=== PATIENT | female | born 1945 | race Caucasian/White ===

== ENCOUNTER 2023-12-02 11:33 | Emergency (ER) | payer MEDICARE ==
[~2023-12-02] VITALS: Ht 165.1 cm; Wt 68.0 kg
[2023-12-02 11:47] VITALS: BP 109/47; PULSE 75; RESP 18; TEMP 98; O2SAT 95
[2023-12-02 12:29] LABS: BASOPHILS % (AUTO) 0.5 % (0.0-2.0); EOSINOPHILS # (AUTO) 0.1 K/uL (0-0.4); EOSINOPHILS % (AUTO) 1.1 % (0.0-4.0); HEMATOCRIT 33.7 % (36-48); LYMPHOCYTES # (AUTO) 1.4 K/uL (2.5-16.5); LYMPHOCYTES % (AUTO) 22.4 % (20.5-51.1); MEAN CORPUSCULAR HEMOGLOBIN 29 pg (27-31); MEAN CORPUSCULAR HGB CONC 33 g/dL (33-37); MEAN CORPUSCULAR VOLUME 89.4 fL (80-94); MONOCYTES # (AUTO) 0.3 K/uL (0.8-1.0); MONOCYTES % (AUTO) 5.1 % (1.7-9.3); NEUTROPHILS # (AUTO) 4.4 K/uL (1.8-7.7); NEUTROPHILS % (AUTO) 70.9 % (42.2-75.2); PLATELET COUNT (AUTO) 350 K/uL (140-450); RED BLOOD CELL COUNT(AUTO) 3.77 MIL/uL (4.20-5.40); RED CELL DISTRIBUTION WIDTH 16.1 % (11.6-13.7); WHITE BLOOD COUNT (AUTO) 6.3 K/uL (4.8-10.8)
[2023-12-02 12:38] LABS: ANION GAP 12.1 (8-16); CALCIUM 11.7 mg/dL (8.5-10.1); CARBON DIOXIDE 33.3 mmol/L (21-32); CHLORIDE 94 mmol/L (98-107); GLUCOSE 231 mg/dL (74-106); SODIUM SERUM 137 mmol/L (136-145)
[2023-12-02 12:39] LABS: POTASSIUM 2.4 mmol/L (3.5-5.1); UREA NITROGEN, BLOOD 71 mg/dL (7-18)
[2023-12-02 12:48] LABS: ALANINE AMINOTRANSFERASE 14 U/L (12-78); ALBUMIN 2.2 g/dL (3.4-5.0); ALKALINE PHOSPHATASE 93 U/L (50-136); ASPARTATE AMINOTRANSFERASE 23 U/L (15-37); BILIRUBIN,DIRECT 0.2 mg/dL (0.0-0.3); TOTAL BILIRUBIN 0.6 mg/dL (0.0-1.0); TOTAL PROTEIN, SERUM 6.9 g/dL (6.4-8.2)
[2023-12-02] MEDS: KETOROLAC 30 MG/ML VIAL IVP ONE (12:51)
[2023-12-02 12:52] LABS: INR 1.05 (0.8-1.2); PARTIAL THROMBOPLASTIN TIME 24.2 secs (22-35.6)
[2023-12-02] MEDS: POTASSIUM CHLORIDE 10 MEQ TABER PO ONE (15:03)
[2023-12-02] MEDS: NACL 0.9% 1,000 ML IV SCH (15:56)
[2023-12-02] MEDS: CIPROFLOXACIN 400 MG/200ML-D5W 200 ML IV ONE (15:59)
[2023-12-02 16:15] VITALS: BP 117/49; PULSE 66; RESP 16; TEMP 97.5; O2SAT 97
[2023-12-02 16:18] LABS: INR 1.08 (0.8-1.2); PROTHROMBIN TIME 11.3 secs (10.8-13.4)
[2023-12-02 16:25] LABS: LACTIC ACID 1.7 mmol/L (0.4-2.0)
== END 2023-12-02 16:39 | disposition short-term general hospital (02) ==
LOC: MED 11:33
DX: I21.4 Non-ST elevation (NSTEMI) myocardial infarction (principal); M06.9 Rheumatoid arthritis, unspecified; E87.6 Hypokalemia; N17.9 Acute kidney failure, unspecified; E11.9 Type 2 diabetes mellitus without complications; I10 Essential (primary) hypertension; E03.9 Hypothyroidism, unspecified; E78.5 Hyperlipidemia, unspecified; Z88.0 Allergy status to penicillin
CPT/HCPCS: 36415; 71045; 73140; 80048; 80076; 82550; 83605; 83880; 84484; 85025; 85379; 85610; 85730; 87040; 93005; 96361; 96374; 99285; J0744; J1885